=== PATIENT | male | born 1990 | race Caucasian/White ===

== ENCOUNTER 2018-01-01 09:26 | Emergency (ER) | payer SELFPAY ==
[2018-01-01 09:32] VITALS: BMI 20.5
--- NOTE | 2018-01-01 09:52 | PDOC ---
History of Present Illness - General History Source: Patient Exam Limitations: No Limitations - History of Present Illness Initial Comments: 01/01/18 11:54 Patient is a 27 year old male with no significant past medical history who presents to the ED with complaints of right sided flank pain that began this morning. Patient reports waking up this morning at 9am with intense right flank pain that he states has progressively gotten worse over time. Patient reports experiencing associated symptoms of vomiting as well as increase in pain with inspiration prompting him to come into the ED for further evaluation. Denies chest pain, Sob. Denies fevers, chills. Denies trauma to affected area. Denies hx of kidney stones. Denies contact with sick individuals, out of state traveling. Denies dysuria, hematuria, constipation, diarrhea. Denies any other symptoms. Allergies: None Social history: Current smoker (10 cigarettes per day). No alcohol. No illicit drugs. Surgical history: None PMD: None <Davy Vaughn - Last Filed: 01/01/18 11:54> <Park Zarate - Last Filed: 01/01/18 14:00> - General Chief Complaint: Pain, Acute Stated Complaint: BACK PAIN Time Seen by Provider: 01/01/18 09:52 Past History <Davy Vaughn - Last Filed: 01/01/18 11:54> - Past Medical History COPD: No - Immunization History Immunization Up to Date: Yes - Suicide/Smoking/Psychosocial Hx Smoking Status: No Smoking History: Current every day smoker Number of Cigarettes Smoked Daily: 10 Information on smoking cessation initiated: No <Park Zarate - Last Filed: 01/01/18 14:00> - Past Medical History Allergies/Adverse Reactions: Allergies Allergy/AdvReac Type Severity Reaction Status Date / Time No Known Allergies Allergy Verified 01/01/18 09:29 Home Medications: Ambulatory Orders Ibuprofen [Motrin -] 600 mg PO TID PRN #21 tablet 01/01/18 Ondansetron [Zofran -] 4 mg PO TID PRN #21 tablet 01/01/18 Review of Systems - Review of Systems Able to Perform ROS?: Yes Comments:: 01/01/18 11:54 GENERAL/CONSTITUTIONAL: No fever or chills. No weakness. HEAD, EYES, EARS, NOSE AND THROAT: No change in vision. No ear pain or discharge. No sore throat. GASTROINTESTINAL: No nausea, vomiting, diarrhea or constipation. GENITOURINARY: No dysuria, frequency, or change in urination. CARDIOVASCULAR: No chest pain or shortness of breath. RESPIRATORY: No cough, wheezing, or hemoptysis. MUSCULOSKELETAL: +Right flank pain. No joint or muscle swelling or pain. No neck pain. SKIN: No rash NEUROLOGIC: No headache, vertigo, loss of consciousness, or change in strength/ sensation. ENDOCRINE: No increased thirst. No abnormal weight change. HEMATOLOGIC/LYMPHATIC: No anemia, easy bleeding, or history of blood clots. ALLERGIC/IMMUNOLOGIC: No hives or skin allergy. <Davy Vaughn - Last Filed: 01/01/18 11:54> *Physical Exam - Vital Signs Last Vital Signs Temp Pulse Resp BP Pulse Ox 97.5 F L 77 18 125/54 99 01/01/18 09:27 01/01/18 09:27 01/01/18 09:27 01/01/18 09:27 01/01/18 09:27 <Davy Vaughn - Last Filed: 01/01/18 11:54> - Vital Signs Last Vital Signs Temp Pulse Resp BP Pulse Ox 97.5 F L 77 18 125/54 99 01/01/18 09:27 01/01/18 09:27 01/01/18 09:27 01/01/18 09:27 01/01/18 09:27 - Physical Exam Comments: GENERAL: Awake, alert, and fully oriented. Appears uncomfortable. HEAD: No signs of trauma EYES: PERRLA, EOMI, sclera anicteric, conjunctiva clear ENT: Auricles normal inspection, hearing grossly normal, nares patent, oropharynx clear without exudates. Dry mucosa NECK: Normal ROM, supple, no lymphadenopathy, JVD, or masses LUNGS: Breath sounds equal, clear to auscultation bilaterally. No wheezes, and no crackles HEART: Regular rate and rhythm, normal S1 and S2, no murmurs, rubs or gallops ABDOMEN: Soft, +R mid-abdominal tenderness, normoactive bowel sounds. No guarding, no rebound. No masses. +R CVAT. EXTREMITIES: Normal range of motion, no edema. No clubbing or cyanosis. No cords, erythema, or tenderness NEUROLOGICAL: Cranial nerves II through XII grossly intact. Normal speech, normal gait. Motor and sensation intact. SKIN: Warm, Dry, normal turgor, no rashes or lesions noted. <Park Zarate - Last Filed: 01/01/18 14:00> ED Treatment Course - LABORATORY CBC & Chemistry Diagram: 01/01/18 10:16 01/01/18 10:16 - ADDITIONAL ORDERS Additional order review: Laboratory Results 01/01/18 01/01/18 10:16 10:16 Sodium 140 Potassium 4.1 Chloride 104 Carbon Dioxide 30 Anion Gap 6 L BUN 12 Creatinine 1.2 D Creat Clearance w eGFR > 60 Random Glucose 114 H Calcium 9.0 Total Bilirubin 1.0 D AST 11 L ALT 19 Alkaline Phosphatase 123 H Total Protein 8.0 Albumin 4.6 Lipase 121 Urine Color Yellow Urine Appearance Clear Urine pH 5.0 D Ur Specific [place] 1.019 Urine Protein Negative Urine Glucose (UA) Negative Urine Ketones Negative Urine Blood 3+ H Urine Nitrite Negative Urine Bilirubin Negative Urine Urobilinogen 2.0 Ur Leukocyte Esterase Negative Urine WBC (Auto) 2 Urine RBC (Auto) 4 Urine Mucus Few 01/01/18 10:16 RBC 4.51 MCV 94.7 MCHC 33.8 RDW 13.2 MPV 9.5 Neutrophils % 52.2 D Lymphocytes % 35.4 D Monocytes % 7.3 D Eosinophils % 4.4 D Basophils % 0.7 D - Medications Given in the ED: ED Medications Discontinued Medications Generic Name Dose Route Start Last Admin Trade Name Freq PRN Reason Stop Dose Admin Sodium Chloride 1,000 mls @ 1,000 mls/hr 01/01/18 10:01 01/01/18 10:17 Normal Saline - IV 01/01/18 11:00 1,000 mls/hr ASDIR STA Administration Ketorolac Tromethamine 30 mg 01/01/18 10:01 01/01/18 10:17 Toradol Injection - IVPUSH 01/01/18 10:02 30 mg ONCE ONE Administration Ondansetron HCl 4 mg 01/01/18 10:01 01/01/18 10:17 Zofran Injection IVPUSH 01/01/18 10:02 4 mg ONCE ONE Administration <Davy Vaughn - Last Filed: 01/01/18 11:54> - LABORATORY CBC & Chemistry Diagram: 01/01/18 10:16 01/01/18 10:16 <Park Zarate - Last Filed: 01/01/18 14:00> Medical Decision Making - Medical Decision Making 01/01/18 10:04 Pt presents with suspected kidney stone vs pyelo. Will send UA and labs. IV toradol, zofran, and fluids. CT r/o stone. 01/01/18 11:54 Pt reports improvement in symptoms. CT reviewed, no acute pathology. Counseled him to return to ED if symptoms persist, worsen. <Park Zarate - Last Filed: 01/01/18 14:00> *DC/Admit/Observation/Transfer - Attestations Scribe Attestion: 01/01/18 11:55 Documentation prepared by Davy Vaughn, acting as medical massage therapist for Park Zarate MD. <Davy Vaughn - Last Filed: 01/01/18 11:54> - Discharge Dispostion Decision to Admit order: No <Park Zarate - Last Filed: 01/01/18 14:00> Diagnosis at time of Disposition: Flank pain - Discharge Dispostion Disposition: HOME Condition at time of disposition: Improved - Prescriptions Prescriptions: Ibuprofen [Motrin -] 600 mg PO TID PRN #21 tablet PRN Reason: Pain Ondansetron [Zofran -] 4 mg PO TID PRN #21 tablet PRN Reason: Nausea And/Or Vomiting - Patient Instructions Printed Discharge Instructions: DI for Flank Pain
[2018-01-01] MEDS ORDERED: SODIUM CHLORIDE 1,000 ML IV STA (10:01)
[2018-01-01] MEDS ORDERED: KETOROLAC TROMETHAMINE 30 MG/1 ML VIAL IVPUSH ONE (10:01)
[2018-01-01] MEDS ORDERED: ONDANSETRON 4 MG/2 ML VIAL IVPUSH ONE (10:01)
[2018-01-01] MEDS ORDERED: KETOROLAC TROMETHAMINE 30 MG/1 ML VIAL ONE (10:04)
[2018-01-01] MEDS ORDERED: ONDANSETRON 4 MG/2 ML VIAL ONE (10:04)
[2018-01-01 10:26] LABS: BASO % 0.7 % (0-2.0); EOS % 4.4 % (0-4.5); HEMATOCRIT 42.7 % (35.4-49); HEMOGLOBIN 14.4 GM/dL (11.7-16.9); LYMPH % 35.4 % (8-40); MCHC 33.8 g/dl (32.0-35.9); MEAN CELL VOLUME 94.7 fl (80-96); MEAN PLT VOLUME 9.5 fl (7.5-11.1); MONO % 7.3 % (3.8-10.2); NEUT % 52.2 % (42.8-82.8); PLATELET COUNT 195 K/MM3 (134-434); RBC 4.51 M/mm3 (4.00-5.60); RDW 13.2 % (11.9-15.9); WHITE BLOOD COUNT 8.1 K/mm3 (4.0-10.0)
[2018-01-01 10:27] LABS: URINE APPEARANCE CLEAR; URINE BILIRUBIN NEGATIVE (<2.0 mg/dL); URINE BLOOD 3+ (NEGATIVE); URINE COLOR YELLOW; URINE GLUCOSE (UA) NEGATIVE (NEGATIVE); URINE KETONE NEGATIVE (NEGATIVE); URINE LEUK ESTERASE NEGATIVE (NEGATIVE); URINE NITRITE NEGATIVE (NEGATIVE); URINE PROTEIN NEGATIVE (NEGATIVE)
[2018-01-01 10:29] LABS: URINE MUCUS FEW
[2018-01-01 10:49] LABS: ALBUMIN 4.6 g/dl (3.4-5.0); ALK PHOS 123 U/L (45-117); ANION GAP 6 (8-16); BLOOD UREA NITROGEN 12 mg/dL (7-18); CHLORIDE 104 mmol/L (98-107); CO2 30 mmol/L (21-32); CREATININE 1.2 mg/dL (0.7-1.3); GLUCOSE,RANDOM 114 mg/dL (74-106); LIPASE 121 U/L (73-393); POTASSIUM 4.1 mmol/L (3.5-5.1); SGOT/AST 11 U/L (15-37); SGPT/ALT 19 U/L (12-78); SODIUM 140 mmol/L (136-145)
[2018-01-01 13:02] VITALS: BP 118/73; PULSE 73; TEMP 98.2
== END 2018-01-01 12:40 | disposition home or self-care (01) ==
LOC: JER 09:26
PROC: 3E0333Z Introduction of Anti-inflammatory into Peripheral Vein, Percutaneous Approach (ICD-10-PCS; principal; 2018-01-01)
PROC: 3E033GC Introduction of Other Therapeutic Substance into Peripheral Vein, Percutaneous Approach (ICD-10-PCS; 2018-01-01)
DX: R10.31 Right lower quadrant pain (principal); F17.210 Nicotine dependence, cigarettes, uncomplicated
CPT/HCPCS: 36415; 74176; 80053; 81003; 81015; 83690; 85025; 87086; 99283-25; J7030